=== PATIENT | male | born 1970 | race Caucasian/White ===

== ENCOUNTER → 2021-04-10 | Day surgery (SDC) | payer BC ==
[~2021-04-10] VITALS: Ht 193 cm; Wt 121.0 kg
[~2021-04-10] MED LIST: ASCO500C PO; CHOL5000 PO; LIDOCAINE 1%/EPI 1:100,000 20 ML VIAL. INJ ONE; MULT-245 PO; NIAC500T PO; VITA1TAB19 PO
[2021-04-10 11:01] VITALS: BP 137/94
--- NOTE | 2021-04-10 13:19 | PDOC1 ---
History and Physical Date of Admission Date of Admission DATE: 04/10/21 TIME: 13:17 Identification/Chief Complaint Chief Complaint Right shoulder mass Source Source: Patient History of Present Illness History of Present Illness 50-year-old male with complaints of a enlarging mass on his right shoulder is been present for about 2 years but recently is becoming larger and more uncomfortable Past Medical History Cardiovascular: No pertinent hx Pulmonary: No pertinent hx GI: No pertinent hx Heme/Onc: No pertinent hx Hepatobiliary: No pertinent hx Psych: No pertinent hx Rheumatologic: No pertinent hx Infectious disease: No pertinent hx ENT: No pertinent hx Renal/: No pertinent hx Endocrine: No pertinent hx Dermatology: No pertinent hx Past Surgical History Past Surgical History: No pertinent history Family History Family History: No Significant Social History Smoke: No ALCOHOL: none Drugs: None Current Medications Current Medications Current Medications Lidocaine/ Epinephrine (LIDOCAINE 1%-EPI 1:100,000 Multi-Dose) 20 ml 1X ONCE INJ Last administered on 04/10/21at 12:18; Start 04/10/21 at 11:00; Stop 04/10/21 at 11:01; Status DC Lidocaine/ Epinephrine (LIDOCAINE 1%-EPI 1:100,000 Multi-Dose) 20 ml STK-MED ONCE INJ Last administered on 04/10/21at 12:18; Start 04/10/21 at 12:18; Stop 04/10/21 at 12:53; Status DC Active Scripts Active Reported B Complex (Vitamin B Complex) 1 Each Tablet 1 Each PO DAILY Vitamin C (Ascorbic Acid) 500 Mg Capsule.er 500 Mg PO DAILY Vitamin D3 (Vitamin D) 125 Mcg Capsule 125 Mcg PO DAILY 5,000 UNITS = 125 MCG Niaspan (Niacin) 500 Mg Tab.er.24h 500 Mg PO HS Multi Vitamin Daily (Multivitamin) 1 Each Tablet 1 Each PO DAILY Allergies Allergies: Coded Allergies: No Known Drug Allergies (Unverified , 04/10/21) Physical Exam General: Alert, Oriented X3, Cooperative, No acute distress HEENT: Atraumatic, EOMI Lungs: Clear to auscultation, Normal air movement Heart: RRR, no murmurs Abdomen: Normal bowel sounds, Soft, No tenderness Rectal Exam: not examined Extremities: No edema Skin: Other (3 cm subcutaneous mass right shoulder) Vitals Vitals Vital Signs Date Time Temp Pulse Resp B/P (MAP) Pulse Ox O2 Delivery O2 Flow Rate FiO2 04/10/21 11:01 86 20 94 VTE Prophylaxis Ordered VTE Prophylaxis Devices: No VTE Pharmacological Prophylaxi: No Assessment/Plan Assessment/Plan Subcutaneous mass right shoulder plan excision Justifications for Admission Other Justification BJORN ZAMBRANO MD Apr 10, 2021 13:19
--- NOTE | 2021-04-10 13:21 | PDOC4 ---
Operative Note Operative Note Date: April 102020 at 120 Preoperative diagnosis: Right shoulder mass Postoperative diagnosis: Same Procedure: Excision of right shoulder mass Surgeon: Carlos Specimen: Right shoulder mass 3 cm Dictation: Patient is a 50-year-old male with complaints enlarging mass on his right shoulder over the last 2 years. Procedure of excision was explained to the patient detail risk benefits were also discussed occluding bleeding infection alternatives to this procedure also discussed with the patient who seemed to understand and gave a verbal written consent to have procedure performed. Patient was taken to the minors room placed in the prone positioning his right shoulder was prepped and draped usual sterile fashion using ChloraPrep. An area around the mass was injected with 1% lidocaine with epinephrine once this was anesthetized incision was made with 15 blade scalpel mass was sharply excised using Metzenbaum scissors the mass size was 3 cm with a 1 cm margin. Mass was sent for pathology. The wound was then closed in 2 layers the deep layer running 3-0 Vicryl and the skin was reapproximated for subcuticular Monocryl Mastisol Steri-Strips and island dressings were applied. Patient was discharged from minors room in stable condition to follow-up Dr. Zambrano in 2 weeks. BJORN ZAMBRANO MD Apr 10, 2021 13:21
--- NOTE | 2021-04-10 13:34 | DISCH ---
DISCHARGE INSTRUCTIONS Condition on Discharge Condition on Discharge: Stable Activity After Discharge Activity Instructions for Disc: No restrictions Diet after Discharge Diet after Discharge: Regular Wound Incision Care Other wound/incision instructi: Shower in 24 hours Contacting the [facility] after DC Call your doctor for: If your condition worsens Follow-Up Follow up with: Dr. Zambrano in 2 weeks BJORN ZAMBRANO MD Apr 10, 2021 13:34
--- NOTE | 2021-04-14 13:34 | PATHOLOGY ---
[facility] Accession Number: [id number] . 01 Material submitted: . shoulder - RIGHT SHOULDER MASS. Modifiers: right . 02 Diagnosis: Fibroadipose tissue, right shoulder mass excision: - Lipoma. ([facility]; 04/14/2021) . [facility] 04/14/2021 0911 Local . 02 Comment: There is no evidence of malignancy. ([facility]; 04/14/2021) . 02 Electronically signed: . Shahid Evans MD, Pathologist NPI- [id number] . 01 Gross description: . The specimen is received in formalin, labeled "Ramon Prince", "right shoulder mass". Received is a partially well-circumscribed, encapsulated segment of bright yellow, lobulated adipose tissue measuring 4.2 x 2.8 x 1.9 cm. The surgical resection margin is inked black. Sectioning reveals a bright yellow, lobulated adipose cut surface with no distinct solid masses or nodules identified. [employer] sections are submitted in cassette A1.([facility]; 04/11/2021) ADONIS/GORAN 04/11/2021 0840 Local . 02 Pathologist provided ICD-10: D17.39 . 02 CPT . 910154 Specimen Comment: A courtesy copy of this report has been sent to [phone], [phone] Specimen Comment: [id number] Specimen Comment: Report sent to / DR ARAUJO Performed at: 01 [facility] [address], [place] [id number] MD Christiano Johns MD Phone: [phone] Performed at: 02 [facility] [id number] MD Shahid Evans MD Phone: [phone]
== END | disposition home or self-care (01) ==
LOC: SURG 10:10
PROVIDERS: ATTEND Surgery
DX: R22.31 Localized swelling, mass and lump, right upper limb (principal); D17.39 Benign lipomatous neoplasm of skin and subcutaneous tissue of other sites; K21.9 Gastro-esophageal reflux disease without esophagitis; Z79.899 Other long term (current) drug therapy; Z98.890 Other specified postprocedural states
CPT/HCPCS: 23071; 88304; J3490